=== PATIENT | female | born 2000 | race Caucasian/White ===

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

== ENCOUNTER 2020-02-28 13:25 | Outpatient (CLI) | payer OTHER ==
[~2020-02-28] VITALS: Ht 154.9 cm; Wt 45.5 kg
[2020-02-28 13:30] VITALS: BP 127/87
[2020-02-28] MEDS ORDERED: LACTATED RINGERS 2,000 ML IV ONE (14:00)
[2020-02-28 14:11] LABS: HEMOGLOBIN 14.4 G/DL (11.5-16.0); MEAN PLATELET VOLUME 11.1 FL (7.4-10.4); RED CELL DISTRIBUTION WIDTH 12.3 % (10.0-14.5); WHITE BLOOD COUNT 11.5 10^3/uL (4.3-11.0)
[2020-02-28] MEDS ORDERED: LACTATED RINGERS 2,000 ML IV SCH (14:15)
[2020-02-28] MEDS ORDERED: ONDANSETRON 4 MG/2 ML (SDV) Z0FRAN IV ONE (14:15)
[2020-02-28 14:24] LABS: ALBUMIN 4.9 GM/DL (3.2-4.5); CHLORIDE 105 MMOL/L (98-107); POTASSIUM 4.3 MMOL/L (3.6-5.0); SODIUM 137 MMOL/L (135-145)
[2020-02-28 14:25] LABS: CALCIUM 11.2 MG/DL (8.5-10.1)
[2020-02-28 14:26] LABS: GLUCOSE 88 MG/DL (70-105); TOTAL PROTEIN 7.7 GM/DL (6.4-8.2)
[2020-02-28 14:27] LABS: CARBON DIOXIDE 24 MMOL/L (21-32)
[2020-02-28 14:28] LABS: BILIRUBIN,TOTAL 0.5 MG/DL (0.1-1.0)
[2020-02-28 14:30] LABS: ALKALINE PHOSPHATASE 81 U/L (40-136); CREATININE SERUM 0.77 MG/DL (0.60-1.30); GFR ESTIMATED > 60
[2020-02-28 14:31] LABS: BUN/CREATININE RATIO 10
[2020-02-28 14:33] LABS: ALANINE AMINOTRANSFERASE 12 U/L (0-55)
[2020-02-28 14:47] LABS: BILIRUBIN,URINE NEGATIVE (NEGATIVE); CLARITY,URINE CLEAR; COLOR,URINE YELLOW; GLUCOSE, URINE (UA) NEGATIVE (NEGATIVE); KETONES,URINE NEGATIVE (NEGATIVE); LEUKOCYTE ESTERASE ,URINE NEGATIVE (NEGATIVE); NITRITE,URINE NEGATIVE (NEGATIVE); PROTEIN,URINE 2+ (NEGATIVE)
[2020-02-28 15:00] LABS: BACTERIA,URINE NEGATIVE /HPF; SQUAMOUS EPITHELIAL CELL,UR 0-2 /HPF
[2020-02-28] MEDS ORDERED: ONDANSETRON 4 MG/2 ML (SDV) Z0FRAN IV PRN (16:45)
== END 2020-02-28 16:18 | disposition home or self-care (01) ==
LOC: SDC 13:25
PROVIDERS: ATTEND Nurse Practitioner Family
DX: R11.15 Cyclical vomiting syndrome unrelated to migraine (principal); E86.0 Dehydration
CPT/HCPCS: 36415; 80053; 81000; 85027

== ENCOUNTER → 2020-04-25 | Outpatient (CLI) | payer OTHER ==
--- NOTE | 2020-04-25 11:37 | Diagnostic Imaging Report ---
INDICATION: Bilateral breast lumps. Sonographic interrogation of all 4 quadrants of each breast as well as the retroareolar regions bilaterally was performed. No sonographic abnormalities identified. No solid or cystic mass is detected. IMPRESSION: BI-RADS Category 1 No sonographic abnormality is detected. ACR BI-RADS Category 1: Negative. Dictated by: Dictated on workstation # [id number]
--- NOTE | 2020-04-25 11:47 | Diagnostic Imaging Report ---
INDICATION: Neck lymphadenopathy. Right lobe of thyroid measures 4.4 x 1.2 x 1.3 cm and the left lobe measures 3.9 x 0.8 x 1.1 cm. Both lobes of thyroid show homogeneous echotexture. No discrete thyroid mass is identified. Interrogation of the area of lump at the angle of the mandible on the right was performed. No underlying abnormality is detected. IMPRESSION: Unremarkable thyroid ultrasound. No neck mass is detected. Dictated by: Dictated on workstation # [id number]
== END ==
LOC: RAD 09:08
PROVIDERS: ATTEND Nurse Practitioner Family
DX: N63.20 Unspecified lump in the left breast, unspecified quadrant (principal); N63.10 Unspecified lump in the right breast, unspecified quadrant; R59.0 Localized enlarged lymph nodes
CPT/HCPCS: 76536; 76642

== ENCOUNTER → 2020-08-18 | Outpatient (CLI) | payer SELFPAY ==
[~2020-08-18] MED LIST: ARIP5TAB57 PO; BCP PO; ESCI5TAB12 PO; SERT25TA PO; SPIR25TA5 PO
== END ==
LOC: FNS 13:21
PROVIDERS: ATTEND Emergency Medicine
DX: Z02.89 Encounter for other administrative examinations (principal)

== ENCOUNTER 2020-08-19 13:45 | Outpatient (RCR) | payer OTHER ==
[~2020-08-19] VITALS: Ht 154.9 cm; Wt 44.9 kg
[2020-08-19] MEDS ORDERED: ESCI5TAB12 PO (14:03)
[2020-08-19] MEDS ORDERED: SPIR25TA5 PO (14:03)
[2020-08-19] MEDS ORDERED: BCP PO (14:03)
[2020-08-19] MEDS ORDERED: ARIP5TAB57 PO (14:03)
[2020-08-19] MEDS ORDERED: SERT25TA PO (14:03)
== END 2020-08-19 16:00 | disposition home or self-care (01) ==
LOC: PREOP 13:45
PROVIDERS: ATTEND Surgery
DX: Z01.818 Encounter for other preprocedural examination (principal)

== ENCOUNTER 2020-08-23 09:24 | Day surgery (SDC) | payer OTHER ==
[2020-08-23] VITALS (9 sets, daily range): BP systolic 103–122; BP diastolic 56–93
[~2020-08-23] VITALS: Ht 154.9 cm; Wt 44.9 kg
[2020-08-23] MEDS ORDERED: NS IV 500 ML 500 ML ONE (09:33)
[2020-08-23] MEDS ORDERED: NS IV 500 ML 500 ML IV PRN (09:33)
[2020-08-23] MEDS ORDERED: HURRICAINE EXT TUBE (BENZOCAINE) XX PRN (09:45)
[2020-08-23] MEDS ORDERED: MIDAZOLAM 5 MG/5 ML (VERSED) VIAL IV ONE (09:45)
[2020-08-23] MEDS ORDERED: fentaNYL INJECTION 100 MCG/2 ML AMP IVP ONE (09:45)
[2020-08-23] MEDS ORDERED: LIDOCAINE JELLY 2% 6 ML SYRINGE MM PRN (09:45)
--- NOTE | 2020-08-23 09:49 | Conscious Sedation/ASA ---
Conscious Sedation Pre-Proced Time 09:40 ASA Score 2 For ASA 3 and 4: Consider anesthesia and medical clearance. Also, for patients with a history of failed moderate sedation consider anesthesia. Airway Lungs Heart ASA score ASA 1: a normal healthy patient ASA 2: a patient with a mild systemic disease (mid diabetes, controlled hypertension, obesity ASA 3: a patient with a severe systemic disease that limits activity (angina, COPD, prior Myocardial infarction) ASA 4: a patient with an incapacitating disease that is a constant threat to life (CHF, renal failure) ASA 5: a moribund patient not expected to survive 24 hrs. (ruptured aneurysm) ASA 6: a declared brain- patient whose organs are being harvested. For emergent operations, add the letter E after the classification Mallampati Classification Grade 2 Sedation Plan Analgesia, Amnesia, Plan communicated to team members, Discussed options with patient/fam, Discussed risks with patient/fam The patient is an appropriate candidate to undergo the planned procedure, sedation, and anesthesia. The patient immediately re-assessed prior to indication. DAO HERNANDEZ MD Aug 23, 2020 09:49
--- NOTE | 2020-08-23 09:49 | Progress Note-Pre Operative ---
Pre-Operative Progress Note H&P Reviewed The H&P was reviewed, patient examined and no changes noted. Date Seen by Provider: Aug 23, 2020 Time Seen by Provider: :40 Date H&P Reviewed: Aug 23, 2020 Time H&P Reviewed: :40 Pre-Operative Diagnosis: GERD, weight loss DAO HERNANDEZ MD Aug 23, 2020 09:49
[2020-08-23] MEDS ORDERED: PANT40TA2 PO (09:52)
--- NOTE | 2020-08-23 09:53 | Discharge Inst-Surgical ---
D/C Lap Instructions-KIDO New, Converted, or Re-Newed RX: RX on Chart Follow Up Activity as tolerated High Fiber Diet 25g or more per day Avoid Alcohol, Caffeine, Spicy [place] and Acid foods. Drink 64 fluid oz or more of fluids per day. Symptoms to Report: Fever over 101 degree F, Nausea/Vomiting If any problems/questions: Contact your physician or go to Emergency Room DAO HERNANDEZ MD Aug 23, 2020 09:53
[2020-08-23] MEDS ORDERED: ONDANSETRON 4 MG/2 ML (SDV) Z0FRAN IVP PRN (10:00)
[2020-08-23] MEDS ORDERED: ACETAMINOPHEN 325 MG TABLET PO PRN (10:00)
[2020-08-23] MEDS ORDERED: HYDROcodone/APAP 5 MG/325 MG (LORTAB) TAB PO PRN (10:00)
[2020-08-23] MEDS ORDERED: morphine INJ 10 MG/ML 1ML (SYR OR VIAL) IVP PRN ×2 (10:00)
[2020-08-23] MEDS ORDERED: HURRICAINE EXT TUBE (BENZOCAINE) ONE (10:25)
[2020-08-23] MEDS ORDERED: fentaNYL INJECTION 100 MCG/2 ML AMP ONE (10:25)
[2020-08-23] MEDS ORDERED: MIDAZOLAM 5 MG/5 ML (VERSED) VIAL ONE ×2 (10:25)
[2020-08-23] MEDS ORDERED: LIDOCAINE JELLY 2% 6 ML SYRINGE ONE (10:25)
--- NOTE | 2020-08-23 13:15 | Progress Note-Post Operative ---
Post-Operative Progess Note Surgeon (s)/Hand Stripper (s) Surgeon ADO HERNANDEZ MD Hand Stripper: none Pre-Operative Diagnosis GERD, weight loss Post-Operative Diagnosis reflux esophagitis(stage 2), small HH(2cm), moderate gastritis. Procedure & Operative Findings Date of Procedure 08/23/20 Procedure Performed/Findings EGD with bx. Anesthesia Type cs Estimated Blood Loss Estimated blood loss (mL): minimal Specimens/Packing Specimens Removed ge jxn, antrum DAO HERNANDEZ MD Aug 23, 2020 13:14
--- NOTE | 2020-08-23 21:21 | OPERATIVE REPORT ---
DATE OF SERVICE: 08/23/2020 ATTENDING PRIMARY CARE PHYSICIAN: Fam Pennington DO PREOPERATIVE DIAGNOSES: Nausea, vomiting, anorexia, gastroesophageal reflux disease. POSTOPERATIVE DIAGNOSES: Reflux esophagitis stage II, small to moderate size hiatal hernia approximately 2.5 cm in size. Moderate gastritis. PROCEDURE: EGD with biopsy. ANESTHESIA: Conscious sedation. ESTIMATED BLOOD LOSS: Minimal. FINDINGS: Reflux esophagitis stage II, small to moderate size hiatal hernia approximately 2.5 cm in size. Moderate gastritis. DISPOSITION: The patient tolerated the procedure well. INDICATIONS: The patient is a 20-year-old female who has had issues with frequent episodes of nausea, vomiting, anorexia as well as epigastric burning sensation consistent with gastroesophageal reflux disease. She is in nursing school and does state that stress does appear to make her symptoms worse. DESCRIPTION OF PROCEDURE: The patient was brought to the endoscopy suite, laid in the left lateral decubitus position with head slightly elevated. After adequate IV pain and sedative medications and conscious sedation anesthesia, the mouthpiece was applied. The endoscope was placed in the mouth, visualizing the pharynx and hypopharyngeal region. Vocal cords, epiglottis and vallecula identified and appeared to be normal. The endoscope was then gently intubated into the esophageal opening and esophagus insufflated. The endoscope was then advanced to the first, second and third portion of the esophagus at the level of the GE junction, a reflux esophagitis stage II identified. There were no ulcers or strictures identified in this region. The endoscope was then advanced into the stomach and endoscope retroflexed, visualizing a small to moderate size hiatal hernia approximately 2.5 cm in size. There was a moderate severity gastritis. No formal ulcers, polyps or any neoplasms. A biopsy was taken of the antrum to rule out H. pylori with visualization of good hemostasis. The endoscope was then advanced to the pylorus, the first and second portion of the duodenum, which appeared normal with no distal obstructions. The endoscope was then slowly withdrawn while taking a second look and suctioning of residual air with no additional findings. The patient tolerated the procedure well. We will have her undergo the necessary lifestyle and diet accommodation including small and more frequent meals, avoidance of eating at night as well as head elevation while lying supine. We will also recommend avoidance of alcohol and caffeinated beverages as well as spicy, greasy, acidic foods. Also start her on Protonix 40 mg daily. If she has continued episodes of nausea and vomiting, this may be a gallbladder etiology for which we would proceed with further evaluation and workup. Job ID: [id number] DocumentID: [id number] Dictated Date: 08/23/2020 11:00:27 Die Machine Operator Date: 08/23/2020 21:20:58 Dictated By: DAO HERNANDEZ MD
== END 2020-08-23 11:35 | disposition home or self-care (01) ==
LOC: ENDO 09:24
PROVIDERS: ATTEND Surgery
DX: K21.00 Gastro-esophageal reflux disease with esophagitis, without bleeding (principal); K29.50 Unspecified chronic gastritis without bleeding; K44.9 Diaphragmatic hernia without obstruction or gangrene; F41.9 Anxiety disorder, unspecified; F32.9 Major depressive disorder, single episode, unspecified; R63.4 Abnormal weight loss; Z79.899 Other long term (current) drug therapy; Z82.49 Family history of ischemic heart disease and other diseases of the circulatory system
CPT/HCPCS: 84703; 88305